=== PATIENT | female | born 1980 | race Caucasian/White ===

== ENCOUNTER 2017-01-17 13:47 | Emergency (ER) | payer MEDICARE ==
[2016-08-07 09:13] VITALS: BMI 21.6
[~2017-01-17 13:47] MED LIST: DEPAKOTE ER250 MG PO; GABAPENTIN100 MG PO; KLONOPIN1 MG PO; METOPROLOL TART50 MG PO; SEROQUEL50 MG PO; TROKENDI XR100 MG PO
[2017-01-17 14:44] LABS: BASOPHILS 0.4 % (0.0-2.0); EOSINOPHILS 1.8 % (0-7); HEMOGLOBIN 13.4 g/dL (12-16); IMMATURE GRANULOCYTES 0.2 % (0-5); LYMPHOCYTES 42.5 % (15-50); MCH 30.2 pg (26.0-34.0); MCHC 32.7 g/dL (31.0-37.0); MCV 92.6 fL (80.0-100.0); MEAN PLATELET VOLUME 10.7 fL (7.4-10.4); MONOCYTES 5.5 % (2-11); NEUTROPHILS 49.6 % (40-80); PLATELET COUNT 174 10x3/uL (130-400); RBC 4.43 10x6/uL (4.00-5.40); RDW 13.1 % (11.5-14.5); WBC 5.7 10x3/uL (4.8-10.8)
[2017-01-17 14:57] LABS: ALBUMIN 3.4 g/dL (3.4-5.0); ALKALINE PHOSPHATASE 135 U/L (46-116); ALT (SGPT) 27 U/L (10-68); BILIRUBIN - TOTAL 0.33 mg/dL (0.2-1.3); CALC OSMOLALITY 286 mosm/kg (275-300); CALCIUM 8.7 mg/dL (8.5-10.1); CARBON DIOXIDE 31.4 mmol/L (21.0-32.0); CHLORIDE - SERUM 107 mmol/L (98-107); CREATININE - SERUM 0.8 mg/dL (0.6-1.3); GLUCOSE 89 mg/dL (74-106); PROTEIN - SERUM 6.9 g/dL (6.4-8.2); SODIUM 145 mmol/L (136-145); UREA NITROGEN 9 mg/dL (7-18); eGFR NON AFRICAN AMERICAN 86 mL/min (90-120)
[2017-01-17 15:08] LABS: UDS - AMPHET NEGATIVE QUAL (NEGATIVE); UDS - BARB NEGATIVE QUAL (NEGATIVE); UDS - BENZO NEGATIVE QUAL (NEGATIVE); UDS - COCAINE NEGATIVE QUAL (NEGATIVE); UDS - METH NEGATIVE QUAL (NEGATIVE); UDS - OPIATE POSITIVE QUAL (NEGATIVE); UDS - PCP NEGATIVE QUAL (NEGATIVE); UDS - THC NEGATIVE QUAL (NEGATIVE)
[2017-01-17 15:09] LABS: CHOL - HDL RATIO 2.2 ratio (2.3-4.1); CHOLESTEROL, TOTAL 135 mg/dL (0-200); CKMB 0.9 U/L (0.0-3.6); CREATINE KINASE 81 UL (21-215); HDL CHOLESTEROL 61 mg/dL (32-96); LDL CHOLESTEROL 66 mg/dL (0-100); LDL-HDL RATIO 1.1 ratio (1.5-3.5); TRIGLYCERIDE 44 mg/dL (30-200)
[2017-01-17 15:10] LABS: TROPONIN-I < 0.017 ng/mL (0.000-0.060)
[2017-01-17 15:13] LABS: APPEARANCE CLEAR (CLEAR); BILIRUBIN NEGATIVE (NEGATIVE); COLOR YELLOW (YELLOW); GLUCOSE NEGATIVE (NEGATIVE); KETONE NEGATIVE (NEGATIVE); LEUKOCYTE ESTERASE 1+ (NEGATIVE); NITRITE NEGATIVE (NEGATIVE); PROTEIN NEGATIVE (NEGATIVE); SPECIFIC GRAVITY 1.015 (1.005-1.020); UROBILINOGEN NORMAL (NORMAL)
[2017-01-17 15:16] LABS: BACTERIA MODERATE /hpf (NONE SEEN); RED CELLS - URINE 0-5 /hpf (0-5); WHITE CELLS - URINE 0-5 /hpf (0-5)
== END 2017-01-17 18:00 | disposition home or self-care (01) ==
LOC: D.ER 13:47
PROVIDERS: Emergency Medicine; Nurse Practitioner Family
DX: R07.89 Other chest pain (principal); E87.6 Hypokalemia; G40.909 Epilepsy, unspecified, not intractable, without status epilepticus; I45.10 Unspecified right bundle-branch block

== ENCOUNTER 2018-03-02 16:45 | Emergency (ER) | payer MEDICARE ==
[2016-08-07 09:13] VITALS: BMI 21.6
== END 2018-03-02 19:10 | disposition home or self-care (01) ==
LOC: D.ER 16:45
DX: S06.0X1A Concussion with loss of consciousness of 30 minutes or less, initial encounter (principal); W20.8XXA Other cause of strike by thrown, projected or falling object, initial encounter; Y93.89 Activity, other specified; Y92.89 Other specified places as the place of occurrence of the external cause; S16.1XXA Strain of muscle, fascia and tendon at neck level, initial encounter; S09.90XA Unspecified injury of head, initial encounter; F17.200 Nicotine dependence, unspecified, uncomplicated

== ENCOUNTER 2019-03-07 19:41 | Emergency (ER) | payer MEDICARE, BC ==
[2019-03-07 19:56] VITALS: BMI 28.1
[2019-03-07] MEDS ORDERED: KEPPRA500 MG (19:57)
[2019-03-07] MEDS ORDERED: CELEXA20 MG (19:58)
[2019-03-07] MEDS ORDERED: PREDNISONE20 MG PO (20:25)
[2019-03-07] MEDS ORDERED: ATARAX 25 MG TA25 MG PO (20:25)
[2019-03-07 21:03] VITALS: BP 150/90
== END 2019-03-07 21:03 | disposition home or self-care (01) ==
LOC: D.ER 19:41
DX: R21 Rash and other nonspecific skin eruption (principal)

== ENCOUNTER 2019-04-01 15:12 | Emergency (ER) | payer MEDICARE ==
[~2019-04-01] VITALS: Ht 167.6 cm; Wt 77.3 kg
[~2019-04-01 15:12] MED LIST changes: +ATARAX 25 MG TA25 MG PO; +CELEXA20 MG; +KEPPRA500 MG; +PREDNISONE20 MG PO
[2019-04-01 15:18] VITALS: Ht 167.6 cm; Wt 77.3 kg
[2019-04-01] MEDS ORDERED: BUSPAR 15 MG TA15 MG PO (15:20)
[2019-04-01 15:40] LABS: BASOPHILS 0.4 % (0-2); EOSINOPHILS 3.1 % (0-7); HEMOGLOBIN 12.6 g/dL (12-16); IMMATURE GRANULOCYTES 0.1 % (0-5); LYMPHOCYTES 38.7 % (15-50); MCH 29.6 pg (26.0-34.0); MCV 84.7 fL (80.0-100.0); MEAN PLATELET VOLUME 9.4 fL (7.4-10.4); MONOCYTES 7.6 % (2-11); NEUTROPHILS 50.1 % (40-80); RBC 4.25 10x6/uL (4.00-5.40); RDW 13.6 % (11.5-14.5); WBC 7.5 10x3/uL (4.8-10.8)
[2019-04-01 15:44] LABS: PLATELET COUNT 215 10x3/uL (130-400)
[2019-04-01] MEDS ORDERED: PHENERGAN DM SYR5 ML PO (15:47)
[2019-04-01 15:58] LABS: ALBUMIN 3.4 g/dL (3.4-5.0); ALKALINE PHOSPHATASE 138 U/L (46-116); ALT (SGPT) 33 U/L (10-68); BILIRUBIN - TOTAL 0.33 mg/dL (0.2-1.3); CALC OSMOLALITY 288 mosm/kg (275-300); CALCIUM 9.1 mg/dL (8.5-10.1); CARBON DIOXIDE 27.6 mmol/L (21.0-32.0); CHLORIDE - SERUM 108 mmol/L (98-107); CREATININE - SERUM 0.7 mg/dL (0.6-1.3); GLUCOSE 105 mg/dL (74-106); POTASSIUM - SERUM 3.3 mmol/L (3.5-5.1); PROTEIN - SERUM 7.3 g/dL (6.4-8.2); SODIUM 144 mmol/L (136-145); UREA NITROGEN 17 mg/dL (7-18); eGFR NON AFRICAN AMERICAN > 90 mL/min (90-120)
[2019-04-01] MEDS ORDERED: ZPAK PO (16:20)
[2019-04-01] MEDS ORDERED: ALBUTEROL SULF8.5 GM INH (16:20)
[2019-04-01 17:05] VITALS: BP 112/76
== END 2019-04-01 17:06 | disposition home or self-care (01) ==
LOC: D.ER 15:12
PROVIDERS: Emergency Medicine
DX: J06.9 Acute upper respiratory infection, unspecified (principal); R21 Rash and other nonspecific skin eruption; R05 Cough

== ENCOUNTER 2019-04-16 17:50 | Emergency (ER) | payer MEDICARE ==
[~2019-04-16] VITALS: Ht 167.6 cm; Wt 81.8 kg
[~2019-04-16 17:50] MED LIST changes: +ALBUTEROL SULF8.5 GM INH; +BUSPAR 15 MG TA15 MG PO; +PHENERGAN DM SYR5 ML PO; +ZPAK PO
[2019-04-16 17:53] VITALS: BP 142/93; Ht 167.6 cm; Wt 81.8 kg
[2019-04-16 18:11] LABS: BASOPHILS 0.5 % (0-2); EOSINOPHILS 3.4 % (0-7); HEMATOCRIT 38.6 % (36.0-48.0); HEMOGLOBIN 13.3 g/dL (12-16); IMMATURE GRANULOCYTES 0.2 % (0-5); LYMPHOCYTES 37.5 % (15-50); MCH 29.4 pg (26.0-34.0); MCHC 34.5 g/dL (31.0-37.0); MCV 85.4 fL (80.0-100.0); MEAN PLATELET VOLUME 9.8 fL (7.4-10.4); MONOCYTES 6.6 % (2-11); NEUTROPHILS 51.8 % (40-80); PLATELET COUNT 236 10x3/uL (130-400); RBC 4.52 10x6/uL (4.00-5.40); RDW 13.9 % (11.5-14.5); WBC 8.5 10x3/uL (4.8-10.8)
[2019-04-16 18:27] LABS: ALBUMIN 3.8 g/dL (3.4-5.0); ALKALINE PHOSPHATASE 156 U/L (46-116); ALT (SGPT) 27 U/L (10-68); CALC OSMOLALITY 281 mosm/kg (275-300); CARBON DIOXIDE 27.7 mmol/L (21.0-32.0); CHLORIDE - SERUM 104 mmol/L (98-107); CREATININE - SERUM 0.7 mg/dL (0.6-1.3); GLUCOSE 84 mg/dL (74-106); POTASSIUM - SERUM 3.4 mmol/L (3.5-5.1); PROTEIN - SERUM 7.7 g/dL (6.4-8.2); SODIUM 141 mmol/L (136-145); UREA NITROGEN 17 mg/dL (7-18); eGFR NON AFRICAN AMERICAN > 90 mL/min (90-120)
[2019-04-16 18:38] LABS: CKMB 0.6 U/L (0.0-3.6); CREATINE KINASE 119 UL (21-215); MAGNESIUM - SERUM 1.8 mg/dL (1.8-2.4)
[2019-04-16 18:41] LABS: TROPONIN-I < 0.017 ng/mL (0.000-0.060)
[2019-04-16 19:03] LABS: APTT 25.9 SECONDS (22.8-39.4); INR 0.98 (0.85-1.17); PROTIME 12.5 SECONDS (11.6-15.0)
== END 2019-04-16 20:28 | disposition home or self-care (01) ==
LOC: D.ER 17:50
PROVIDERS: Family Medicine
DX: R07.9 Chest pain, unspecified (principal); F17.200 Nicotine dependence, unspecified, uncomplicated

== ENCOUNTER 2019-07-01 21:23 | Emergency (ER) | payer SELFPAY ==
[~2019-07-01] VITALS: Ht 167.6 cm; Wt 80.5 kg
[2019-07-01 21:37] VITALS: Ht 167.6 cm; Wt 80.5 kg
[2019-07-01 22:40] VITALS: BP 136/72
--- NOTE | 2019-07-01 22:53 | NUR ---
DR RODRIGUEZ NOTIFIED AND REVIEWED PT BEHAVIOR AND ASSESSMENT RESULTS, PT IS A LOW RISK PER DR RODRIGUEZ, LIAM STATED TP GIVE RESOURCES TO PT AT TIME OF DISCARGE. NO FURTHER ORDERS AT THIS TIME. RESOURCES REVIEWED WITH PT AND SHE VERBALIZED UNDERSTANDING.
== END 2019-07-01 22:40 | disposition home or self-care (01) ==
LOC: D.ER 21:23
DX: S63.301A Traumatic rupture of unspecified ligament of right wrist, initial encounter (principal); X58.XXXA Exposure to other specified factors, initial encounter

== ENCOUNTER 2019-09-08 15:59 | Emergency (ER) | payer SELFPAY ==
[~2019-09-08] VITALS: Ht 167.6 cm; Wt 77.3 kg
[2019-09-08 16:20] VITALS: Ht 167.6 cm; Wt 77.3 kg
[2019-09-08 16:45] LABS: HEMATOCRIT 39.5 % (36.0-48.0); HEMOGLOBIN 13.4 g/dL (12-16); LYMPHOCYTES 37.7 % (15-50); MCH 30.8 pg (26.0-34.0); MCHC 33.9 g/dL (31.0-37.0); MCV 90.8 fL (80.0-100.0); MEAN PLATELET VOLUME 9.5 fL (7.4-10.4); NEUTROPHILS 51.2 % (40-80); RBC 4.35 10x6/uL (4.00-5.40); RDW 12.4 % (11.5-14.5); WBC 8.6 10x3/uL (4.8-10.8)
[2019-09-08 16:47] LABS: PLATELET COUNT 287 10x3/uL (130-400)
[2019-09-08 18:17] LABS: CALC OSMOLALITY 278 mosm/kg (275-300); CALCIUM 9.3 mg/dL (8.5-10.1); CARBON DIOXIDE 26.4 mmol/L (21.0-32.0); CHLORIDE - SERUM 105 mmol/L (98-107); CREATININE - SERUM 0.8 mg/dL (0.6-1.3); GLUCOSE 99 mg/dL (74-106); POTASSIUM - SERUM 3.7 mmol/L (3.5-5.1); SODIUM 141 mmol/L (136-145); UREA NITROGEN 6 mg/dL (7-18); eGFR NON AFRICAN AMERICAN 85 mL/min (90-120)
[2019-09-08 18:23] LABS: ALBUMIN 3.8 g/dL (3.4-5.0); ALKALINE PHOSPHATASE 151 U/L (46-116); ALT (SGPT) 60 U/L (10-68); BILIRUBIN - TOTAL 0.28 mg/dL (0.2-1.3); PROTEIN - SERUM 8.3 g/dL (6.4-8.2)
[2019-09-08 18:34] LABS: AMYLASE - SERUM 56 U/L (25-115); LIPASE 104 U/L (73-393)
[2019-09-08 19:28] LABS: HCG SERUM NEGATIVE (NEGATIVE)
[2019-09-08 20:30] VITALS: BP 140/65
[2019-09-08 21:50] LABS: APPEARANCE CLEAR (CLEAR); BILIRUBIN NEGATIVE (NEGATIVE); COLOR YELLOW (YELLOW); GLUCOSE NEGATIVE (NEGATIVE); KETONE NEGATIVE (NEGATIVE); NITRITE NEGATIVE (NEGATIVE); PROTEIN NEGATIVE (NEGATIVE); UROBILINOGEN NORMAL (NORMAL)
[2019-09-08] MEDS ORDERED: PROTONIX40 MG PO (21:55)
[2019-09-08] MEDS ORDERED: ZOFRAN ODT4 MG/UDTAB PO (21:55)
== END 2019-09-08 22:25 | disposition home or self-care (01) ==
LOC: D.ER 15:59
PROVIDERS: Family Medicine
DX: K29.70 Gastritis, unspecified, without bleeding (principal); R11.10 Vomiting, unspecified; R19.7 Diarrhea, unspecified

== ENCOUNTER 2020-01-23 12:17 | Emergency (ER) | payer SELFPAY ==
[~2020-01-23] VITALS: Ht 167.6 cm; Wt 81.8 kg
[~2020-01-23 12:17] MED LIST changes: +PROTONIX40 MG PO; +ZOFRAN ODT4 MG/UDTAB PO
[2020-01-23 12:26] VITALS: Ht 167.6 cm; Wt 81.8 kg
[2020-01-23] MEDS ORDERED: VOLTAREN75 MG PO (13:27)
[2020-01-23] MEDS ORDERED: VIBRAMYCIN 100100 MG PO (13:27)
[2020-01-23 13:37] VITALS: BP 128/72
== END 2020-01-23 13:38 | disposition home or self-care (01) ==
LOC: D.ER 12:17
DX: L03.115 Cellulitis of right lower limb (principal)

== ENCOUNTER 2020-03-02 20:28 | Emergency (ER) | payer SELFPAY ==
[~2020-03-02] VITALS: Ht 170.2 cm; Wt 85.5 kg
[~2020-03-02 20:28] MED LIST changes: +VIBRAMYCIN 100100 MG PO; +VOLTAREN75 MG PO
[2020-03-02 20:36] VITALS: Ht 170.2 cm; Wt 85.5 kg
[2020-03-02] MEDS ORDERED: ZANAFLEX4 MG PO (21:03)
[2020-03-02 21:34] VITALS: BP 159/81
== END 2020-03-02 21:34 | disposition home or self-care (01) ==
LOC: D.ER 20:28
DX: G44.209 Tension-type headache, unspecified, not intractable (principal); M54.2 Cervicalgia

== ENCOUNTER 2020-05-08 19:09 | Emergency (ER) | payer MEDICARE ==
[~2020-05-08] VITALS: Ht 170.2 cm; Wt 85.5 kg
[~2020-05-08 19:09] MED LIST changes: +ZANAFLEX4 MG PO
[2020-05-08 19:15] VITALS: BP 125/95; Ht 170.2 cm; Wt 85.5 kg
[2020-05-08] MEDS ORDERED: LITHOBID 300 M300 MG PO (19:18)
== END 2020-05-08 19:49 | disposition home or self-care (01) ==
LOC: D.ER 19:09
DX: S60.00XA Contusion of unspecified finger without damage to nail, initial encounter (principal); W31.89XA Contact with other specified machinery, initial encounter; Y93.9 Activity, unspecified; Y92.9 Unspecified place or not applicable